=== PATIENT | female | born 1975 | race Caucasian/White ===

== ENCOUNTER 2016-09-24 00:27 | Emergency (ER) | payer SELFPAY ==
--- NOTE | 2016-10-04 20:32 | ER ---
ADMIT: 09/24/2016 RM/LOC: ER [facility] MR#: [id number] [facility] [address] [place], [place] [id number] JONNY NEAL [address] [place] [address] Emergency Room Report SEX: F AGE: 41 : 1975 DATE: 09/24/2016 ADDENDUM: See T-sheet for complete H and P. A 41-year-old female, comes in complaining of abdominal pain. It has been going on for about 12 hours and is primarily in her left lower quadrant, somewhat into her back. She does have a history of IBS, anxiety, and states she has had some kidney stones in the past. On examination, her bowel sounds are active. She has tenderness in her left lower quadrant. CBC was normal. Chemistries were normal. Urinalysis showed normal UA, and urine was negative. The patient got Toradol and Valium in the emergency department, her symptoms were improved. I did get a CT renal colic study, which is unremarkable other than a 3 cm cyst on her left ovary. It is recommended that she has a 6-week followup pelvic ultrasound to further evaluate the cyst. The patient is feeling better, so she is discharged home with 3 [place] to be taken as needed for pain. To follow up with Dr. Booker Espinosa if not improving. Return to the ER for any worsening symptoms and her information was sent to centralized scheduling to arrange for a 6-week followup pelvic ultrasound with results to go to Dr. Espinosa. DIAGNOSES: 1. Abdominal pain. 2. Ovarian cyst, left. Husam Moran MD/ gomez JOB #: [id number] CC: Husam Moran MD, Attending Physician
== END 2016-09-24 03:09 | disposition home or self-care (01) ==
LOC: ER 00:27
DX: N83.201 Unspecified ovarian cyst, right side (principal); F41.9 Anxiety disorder, unspecified; G43.909 Migraine, unspecified, not intractable, without status migrainosus; F17.210 Nicotine dependence, cigarettes, uncomplicated

== ENCOUNTER → 2016-09-25 | Outpatient (CLI) | payer SELFPAY | END | disposition home or self-care (01) | LOC: RAD.S 15:28 | DX: R10.2 Pelvic and perineal pain (principal); R10.32 Left lower quadrant pain; N83.209 Unspecified ovarian cyst, unspecified side ==

== ENCOUNTER → 2016-11-07 | Outpatient (CLI) | payer SELFPAY | END | disposition home or self-care (01) | LOC: RAD.S 12:32 | DX: N83.202 Unspecified ovarian cyst, left side (principal); R10.32 Left lower quadrant pain; R10.2 Pelvic and perineal pain; Z90.712 Acquired absence of cervix with remaining uterus ==